=== PATIENT | male | born 1985 | race Caucasian/White ===

== ENCOUNTER 2018-05-28 20:08 | Emergency (ER) | payer MEDICAID, OTHER ==
[2018-05-28 20:17] VITALS: BP 129/84
--- NOTE | 2018-05-28 20:57 | EDPHY ---
HPI/HX/ROS/PE/MDM Narrative: CHIEF COMPLAINT: "Another episode of rat poisoning" HISTORY OF PRESENT ILLNESS: This patient is a 32 year old male with history of manic depression and schizophrenia(Seroquel, Zyprexa). He tells me immediately that he thinks he has had "another episode of rat poisoning", and that his neighbor may be sneaking in and out of his apartment with rat poison. He additionally complaints of chest pain, stating "I think my chest hurts because it just hurts". He does not elucidate further. He reports he has been "convulsing" and has shaky legs frequently. He additionally repeats frequently that he is "a little out of it". The patient has been evaluation twice at [facility] in the last week for similar symptoms. Yesterday, he felt well, but today, has been feeling weak. He endorses history of methamphetamine use. He has been taking buprenorphine for the past six years and denies using any opiates or benzodiazepines. He states he has been working on following up with his psychiatrist lately, but has not recently. He denies any suicidal or homicidal ideation. No fever, chills, shortness of breath, palpitations, vomiting, diarrhea, urinary complaints. The patient has several red lesions across his chest as well as small shaved areas. 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 REVIEW OF SYSTEMS: A comprehensive 10 system review of systems is otherwise negative aside from elements mentioned in the history of present illness and medical decision making. PAST MEDICAL HISTORY: Bipolar disorder. Schizophrenia. SOCIAL HISTORY: Single. Lives in [place]. History of polysubstance abuse. VITAL SIGNS: Reviewed by me GENERAL: Well-developed, well-nourished, resting comfortably in no respiratory distress. HEENT: Atraumatic. Eyes: No icterus, no injection. Mouth: moist mucous membranes. No erythema or lesions. Neck: supple with no adenopathy. LUNGS: Clear to auscultation bilaterally, no wheezes, rhonchi or rales. CARDIAC: Regular rate and rhythm, no rubs, murmurs or gallops. ABDOMEN: Soft, nontender, nondistended, bowel sounds normal. BACK: No CVA tenderness. EXTREMITIES: No trauma. No edema. Range of motion is normal throughout. NEURO: Alert and oriented, grossly nonfocal. SKIN: Warm and dry, no rash. PSYCHIATRIC: Normal mentation, no agitation. Portions of this note were transcribed by a biomedical scientist. I personally performed a history, physical exam, medical decision making, and confirmed accuracy of information the transcribed note. ED Course: 32 y/o male presents with concerns for rat poison toxicity as well as chest discomfort. Plan for EKG, chest x-ray, labs including CBC, chemistries, POC troponin. On exam, there is an area of erythema and possible swelling over the patient's frontal scalp. He is unsure whether he has fallen but does endorse headache now. Plan for CT head for further evaluation. 12-LEAD EKG: Please see the full report in [facility]. My interpretation: Sinus tachycardia. 21:[address] Lockett, radiologist. CT head negative for acute processes. 21:37 Notified that patient has eloped from the ED. See nurses notes for details. 21:40 POC troponin elevated at 0.16. Patient has left the department. We will attempt to find him to relay test results and discuss further evaluation. 21:57 Patient is checking back in. He reportedly told security that he "coded because they took too much blood" but now that he has been "resuscitated", he would like further evaluation. Chart to be continued in a second document due to patient registration requirements. MDM: Differential diagnoses for the patient's symptom complex was considered including but not limited to chest contusion, pneumothorax, pneumonia, drug or alcohol abuse, drug or alcohol withdrawal, mental health disease, hallucinations , paranoia, delusions. - Data Points Imaging Results: Impression: No acute intracranial findings. Salma Luis was notified of these findings by telephone at 9:37 PM on 2017 Dictated By: Minor Lockett MD Imaging: Discussed imaging studies w/ call or contact centre manager Radiologist Laboratory Results: Laboratory Results 05/28/18 21:43 Point of Care Test Results: Chemistry 05/28/18 05/28/18 21:32 21:30 POC Sodium 145 mEq/L mEq/L (135-145) POC Potassium 4.2 mEq/L mEq/L (3.3-5.0) POC Chloride 108 mEq/L mEq/L (97-110) POC BUN 15 mg/dL mg/dL (7-23) POC Creatinine 0.7 mg/dL mg/dL (0.7-1.3) POC Glucose 92 mg/dL mg/dL (70-100) POC Troponin I 0.16 ng/mL H ng/mL (0.00-0.08) ISTAT H&H 05/28/18 21:32 POC Hgb 12.9 gm/dL L gm/dL (13.7-17.5) POC Hct 38 % L % (40-51) General Time Seen by Provider: 05/28/18 20:38 Initial Vital Signs: Initial Vital Signs Temperature (C) 36.4 C 05/28/18 20:11 Heart Rate 103 H 05/28/18 20:11 Respiratory Rate 20 05/28/18 20:11 Blood Pressure 129/84 H 05/28/18 20:11 O2 Sat (%) 96 05/28/18 20:11 O2 Delivery Mode Room Air Allergies/Adverse Reactions: narcan Allergy (Uncoded 05/28/18 21:51) Home Medications: Medication Instructions Recorded Buprenorphine 05/28/18 Cetirizine 05/28/18 Olanzapine 05/28/18 Quetiapine Fumarate 05/28/18 SUBOXONE 2mg/0.5mg 05/28/18 Departure - Departure Disposition: Against Medical Advice Clinical Impression: Left before workup complete Chest pain Qualifiers: Chest pain type: unspecified Qualified Code(s): R07.9 - Chest pain, unspecified Condition: Fair Additional Instructions: Patient eloped from the emergency department before the evaluation was complete. He did not notify the staff. Referrals: NONE *PRIMARY CARE P,. [Primary Care Provider] - As per Instructions Report Scribed for: Salma Luis Report Scribed by: Rohini Yang Date of Report: 05/28/18 Time of Report: 23:04
[2018-05-28] MEDS ORDERED: NS 1,000 ML IV ONE (21:05)
[2018-05-28] MEDS ORDERED: LORazepam 2 MG/ML INJ IVP ONE (22:10)
--- NOTE | 2018-05-29 14:21 | CPEKG ---
Test Reason : OPEN Blood Pressure : / mmHG Vent. Rate : 103 BPM Atrial Rate : 103 BPM P-R Int : 147 ms QRS Dur : 084 ms QT Int : 340 ms P-R-T Axes : 068 067 056 degrees QTc Int : 445 ms Sinus tachycardia Low voltage, extremity leads Confirmed by Hudson Elmore ([id number]) on 05/29/2018 2:21:42 PM Referred By: Confirmed By:Hudson Elmore
== END 2018-05-28 21:38 | disposition left against medical advice (07) ==
LOC: EDUNIT#
DX: F20.0 Paranoid schizophrenia (principal); Z79.899 Other long term (current) drug therapy
CPT/HCPCS: 80305; 82435-PO; 82565-PO; 82947-PO; 84132-PO; 84295-PO; 84484-PO; 84520-PO; 85014-PO

== ENCOUNTER 2018-05-28 21:49 | Emergency (ER) | payer MEDICAID ==
[2018-05-28] MEDS ORDERED: LORazepam 2 MG/ML INJ ONE (22:08)
--- NOTE | 2018-05-28 22:45 | EDPHY ---
H & P Stated Complaint: Hit head, "i think i coded earlier"," i want to be watched" Time Seen by Provider: 05/28/18 21:55 HPI/ROS: CHIEF COMPLAINT: "Another episode of rat poisoning" HISTORY OF PRESENT ILLNESS: This patient is a 32 year old male with history of manic depression and schizophrenia(Seroquel, Zyprexa). He tells me immediately that he thinks he has had "another episode of rat poisoning", and that his neighbor may be sneaking in and out of his apartment with rat poison. He additionally complaints of chest pain, stating "I think my chest hurts because it just hurts". He does not elucidate further. He reports he has been "convulsing" and has shaky legs frequently. He additionally repeats frequently that he is "a little out of it". The patient has been evaluation twice at [facility] in the last week for similar symptoms. Yesterday, he felt well, but today, has been feeling weak. He endorses history of methamphetamine use. He has been taking buprenorphine for the past six years and denies using any opiates or benzodiazepines. He states he has been working on following up with his psychiatrist lately, but has not recently. He denies any suicidal or homicidal ideation. No fever, chills, shortness of breath, palpitations, vomiting, diarrhea, urinary complaints. The patient has several red lesions across his chest as well as small shaved areas. 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 REVIEW OF SYSTEMS: A comprehensive 10 system review of systems is otherwise negative aside from elements mentioned in the history of present illness and medical decision making. PAST MEDICAL HISTORY: Bipolar disorder SOCIAL HISTORY: Smoker, denies alcohol use. Denies any recent illicit drug use. VITAL SIGNS: Reviewed by me GENERAL: Well-developed, well-nourished, resting comfortably in no respiratory distress. Occasionally seems to be responding to external stimuli. HEENT: Atraumatic. Eyes: No icterus, no injection. Pupils 3 mm and reactive. Mouth: moist mucous membranes. No erythema or lesions. Neck: supple with no adenopathy. LUNGS: Clear to auscultation bilaterally, no wheezes, rhonchi or rales. CARDIAC: Tachycardic but regular rhythm, no rubs, murmurs or gallops. ABDOMEN: Soft, nontender, nondistended, bowel sounds normal. BACK: No CVA tenderness. EXTREMITIES: No trauma. No edema. Range of motion is normal throughout. NEURO: Alert and oriented, grossly nonfocal. SKIN: Warm and dry, multiple scattered circular scars across the chest which appear to me to be cigarette queen. 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 PSYCHIATRIC: Normal mentation, somewhat suspicious. Portions of this note were transcribed by a medical education manager. I personally performed a history, physical exam, medical decision making, and confirmed accuracy of information the transcribed note. - Personal History Current Tetanus Diphtheria and Acellular Pertussis (TDAP): No - Medical/Surgical History Hx Asthma: No Hx Chronic Respiratory Disease: No Hx Diabetes: No Hx Cardiac Disease: No Hx Renal Disease: No Hx Cirrhosis: No Hx Alcoholism: Yes Hx HIV/AIDS: No Hx Splenectomy or Spleen Trauma: No Other PMH: Orthopedic injuries. "Heart issues" schitzophrenia - Social History Smoking Status: Current every day smoker Constitutional: Initial Vital Signs Temperature (C) 36.7 C 05/28/18 21:52 Heart Rate 100 05/28/18 21:52 Respiratory Rate 20 05/28/18 21:52 Blood Pressure 118/70 05/28/18 21:52 O2 Sat (%) 95 05/28/18 21:52 O2 Delivery Mode Room Air Allergies/Adverse Reactions: narcan Allergy (Uncoded 05/28/18 21:51) Home Medications: Medication Instructions Recorded Buprenorphine 05/28/18 Cetirizine 05/28/18 Olanzapine 05/28/18 Quetiapine Fumarate 05/28/18 SUBOXONE 2mg/0.5mg 05/28/18 Medical Decision Making - Diagnostics EKG Interpretation: 12-LEAD EKG: Please see the full report in [facility] Master. My interpretation: Sinus tachycardia Imaging Results: Imaging Results: Imaging Impressions Head CT 05/28/18 21:07 Impression: No acute intracranial findings. Salma Luis was notified of these findings by telephone at 9:37 PM on 2017 Imaging: Discussed imaging studies w/ protocol officer Radiologist ED Course/Re-evaluation: 32 y/o male presents with concerns for rat poison toxicity as well as chest discomfort. Plan for EKG, chest x-ray, labs including CBC, chemistries, POC troponin. On exam, there is an area of erythema and possible swelling over the patient;s frontal scalp. He is unsure whether he has fallen. Plan for CT head for further evaluation. 21:37 Notified that patient has eloped from the ED. See nurses notes for details. The patient left the emergency department abruptly. Within a few moments after leaving, was noted that the patient's bedside troponin was positive at 0.16. We were attempting to contact the patient when he returned. 21:57 Patient is checking back in. He reportedly told security that he "coded because they took too much blood" but now that he has been "resuscitated", he would like further evaluation. Patient has been placed on a MIH , a medical incapacitation hold, until we can assess whether or not he is under the influence of alcohol, drugs, electrolyte abnormalities, or significant psychiatric illness. I explained to the patient that were concerned regarding his heart and that he needs to stay for further evaluation. He is agreeable. He is noted to be hallucinating and delusional. He is making statements that he left because we were spitting into the wound on his neck. Patient does have a significant psychiatric history of bipolar plus or minus schizophrenia. Patient had been seen at [facility] previously on 2 occasions earlier this week and at that time was noted to have urine tox positive for amphetamines as well as Ecstasy. Patient was placed in room 15. He is a very difficult IV stick. Bloods were eventually obtained and we will recheck a troponin in the lab. EKG demonstrates sinus tachycardia with no ischemic changes. Urine tox tonight is negative. He tells me he only takes his Zyprexa when he feels like he needs it. Last time he took Zyprexa was yesterday. Patient's troponin in the lab tonight is normal. Remainder of his CBC and chemistries are normal with the exception of a slightly elevated CPK at 450. Patient's chest x-ray demonstrates no acute abnormalities to account for complaint of chest pain. I held a long discussion with the patient again. He states that he knows he has mental health disease but he is currently not suicidal or homicidal. He does not want a mental health evaluation. On occasion, he seems to be having some hallucinations, but I do not believe he is gravely disabled. He will call for friend for a ride home. Differential Diagnosis: After history and physical examination, the differential for chest pain was considered, including but not limited to, myocardial ischemia, acute coronary syndrome, chest wall pain, effects of drug or alcohol, pleural inflammation and pulmonary infectious causes. - Data Points Laboratory Results: Laboratory Results 05/28/18 22:15 05/28/18 22:15 Departure - Departure Disposition: Home, Routine, Self-Care Clinical Impression: Chest pain, Bipolar disorder Condition: Good Instructions: Bipolar Disorder (ED), Psychotic Disorder (ED) Additional Instructions: Your evaluation for chest pain in the emergency department this evening is normal. It is important that you drink plenty of fluid. It is important that you avoid illicit drug use. It is very important that you follow up with your psychiatrist for further evaluation Referrals: NONE *PRIMARY CARE P,. [Primary Care Provider] - As per Instructions [facility] [Clinic] - As per Instructions
[2018-05-28 23:19] LABS: PLATELET COUNT 279 10^3/uL (150-400)
[2018-05-28 23:21] LABS: CREATINE KINASE 450 IU/L (0-224)
[2018-05-29 00:10] VITALS: BP 122/80
== END 2018-05-29 00:10 | disposition home or self-care (01) ==
DX: R07.9 Chest pain, unspecified (principal); F31.9 Bipolar disorder, unspecified; F20.9 Schizophrenia, unspecified
CPT/HCPCS: J2060